=== PATIENT | male | born 1945 | race Caucasian/White ===

== ENCOUNTER 2017-11-11 17:08 | Emergency (ER) | payer MEDICARE ==
[2017-11-11] MEDS ORDERED: Ibuprofen TAB* 600 MG PO ONE (17:21)
[2017-11-11 18:24] VITALS: BP 0/0
[2017-11-11] MEDS ORDERED: Oseltamivir CAP* 75 MG CAP PO ONE (18:38)
--- NOTE | 2017-11-11 18:42 | UC ---
FLU HPI - HPI Summary HPI Summary: 3 DAYS OF FEVER, SWEATS, BODY ACHES, SUBRAMANIAN, COUGH, CONGESTION. FEELS SOB WITH CP AND DIZZINESS. UTD FLU SHOT. - History of Current Complaint Chief Complaint: UCRespiratory Stated Complaint: URI Time Seen by Provider: 11/11/17 17:49 Hx Obtained From: Patient, Family/Acupuncturist - Onset/Duration: Gradual Onset, Lasting Days, Still Present Severity Currently: Moderate Severity Initially: Moderate Pain Intensity: 5 Pain Scale Used: 0-10 Numeric Associated Signs & Symptoms: Positive: Fever, Myalgia, Cough, Nasal Congestion, Headache, Vomiting - Allergy/Home Medications Allergies/Adverse Reactions: Allergies Allergy/AdvReac Type Severity Reaction Status Date / Time No Known Allergies Allergy Verified 12/18/13 08:52 Home Medications: Home Medications Clopidogrel Bisulfate [Plavix] 11/11/17 [History] Losartan Potassium [Cozaar] 11/11/17 [History] Metoprolol Plata/Hydrochlorothiaz [Metoprolol ER-Hctz 25-12.5 mg] 11/11/17 [ History] Pravastatin Sodium [Pravachol] 11/11/17 [History] PMH/Surg Hx/FS Hx/Imm Hx Endocrine History: Dyslipidemia Cardiovascular History: Cardiac Disease, Hypertension Respiratory History: Asthma - Surgical History Surgical History: Yes Surgery Procedure, Year, and Place: Kidney stone removal x2. appendectomy. tonsillectomy with regrowth - Family History Known Family History: Positive: Hypertension - Social History Alcohol Use: None Substance Use Type: None Smoking Status (MU): Never Smoked Tobacco Have You Smoked in the Last Year: No - Immunization History Most Recent Influenza Vaccination: 07/2013 Review of Systems Constitutional: Fever, Chills, Fatigue ENT: Nasal Discharge Respiratory: Shortness Of Breath, Cough Cardiovascular: Chest Pain Gastrointestinal: Vomiting, Nausea Musculoskeletal: Myalgia Neurological: Headache All Other Systems Reviewed And Are Negative: Yes Physical Exam Triage Information Reviewed: Yes Appearance: No Pain Distress, Well-Nourished, Ill-Appearing - MODERATELY ILL, DIAPHORETIC Vital Signs: Initial Vital Signs Temp 104.0 F 11/11/17 17:17 Pulse 127 11/11/17 17:17 Resp 18 11/11/17 17:17 BP 123/84 11/11/17 17:17 Pulse Ox 94 11/11/17 17:17 Vital Signs Reviewed: Yes Eyes: Positive: Conjunctiva Clear ENT: Positive: Hearing grossly normal Neck: Positive: Supple Respiratory Exam: Normal Cardiovascular: Positive: Tachycardia Abdomen Description: Positive: Soft Musculoskeletal: Positive: No Edema Neurological: Positive: Alert Psychological: Positive: Normal Response To Family, Age Appropriate Behavior Skin: Negative: rashes Diagnostics - Laboratory Diagnostic Studies Completed/Ordered: POSITIVE INFLUENZA A - EKG Cardiac Rate: NL - 115 BPM, Tachycardia - 115 BPM Cardiac Rhythm: Sinus: Normal Ectopy: None ST Segment: Normal Flu Course/Dx - Course Course Of Treatment: OXYGEN 2L BY NC APPLIED. IBUPROFEN 600MG AND TAMIFLU 75MG PO GIVEN. PIV INSERTED. TO [facility] [place] [facility] [place] - Differential Dx/Diagnosis Provider Diagnoses: 1. INFLUENZA A. 2. SOB, DIZZY, LOW OXYGEN - Physician Notifications Discussed Patient Care With: Irlanda Gordon - TO [facility] [place] [facility] [place] Time Discussed With Above Provider: 18:39 Instructed by Provider To: Will See In ED Discharge - Discharge Plan Condition: Stable Disposition: TRANS HIGHER LVL OF CARE FAC Referrals: Jeremiah Harris MD [Primary Care Provider] -
== END 2017-11-11 19:00 | disposition short-term general hospital (02) ==
LOC: UCEAST 17:08
DX: J11.1 Influenza due to unidentified influenza virus with other respiratory manifestations (principal); R06.02 Shortness of breath; R42 Dizziness and giddiness; R09.02 Hypoxemia; R00.0 Tachycardia, unspecified; R07.89 Other chest pain; E78.5 Hyperlipidemia, unspecified; I11.9 Hypertensive heart disease without heart failure; J45.909 Unspecified asthma, uncomplicated; Z87.442 Personal history of urinary calculi
CPT/HCPCS: 87502; 93005; 99213; A9270-GY; G0463

== ENCOUNTER 2017-11-11 19:16 | Emergency (ER) | payer MEDICARE ==
[2017-11-11 20:37] VITALS: BP 119/73
--- NOTE | 2017-11-12 06:18 | ED ---
Sharyn Guillermo Nilda, scribed for Yefri Serrano MD on 11/11/17 at 2020 . Influenza-Like Illness - HPI Summary HPI Summary: This patient is a 71 year old M BIBA from [facility] to [facility] accompanied by with a chief complaint of constant flu-like symptoms for the past 3 days. The patient rates the pain 3/10 in severity. 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 Patient reports fever, body aches, cough, SOB, wheezing, and CP secondary to cough (resolved). Patient denies sore throat. Patient states he went to [facility] and was diagnosed with influenza A but was transferred to [facility] due to CP and cardiac history (CABG and CAD). Medications include albuterol, Flonase, Plavix, and Metoprolol. - History of Current Complaint Chief Complaint: EDFluSymptoms Time Seen by Provider: 11/11/17 20:05 Hx Obtained From: Patient Onset/Duration: Sudden Onset, Lasting Days, Still Present Associated Signs & Symptoms: Fever, Myalgia, Cough Related Hx: Possible Flu/Infectious Exposure - Allergy/Home Medications Allergies/Adverse Reactions: Allergies Allergy/AdvReac Type Severity Reaction Status Date / Time No Known Allergies Allergy Verified 12/18/13 08:52 PMH/Surg Hx/FS Hx/Imm Hx Cardiovascular History: Reports: Hx Coronary Artery Disease, Hx Hypercholesterolemia, Hx Hypertension Respiratory History: Reports: Hx Asthma - Surgical History Surgery Procedure, Year, and Place: Quadruple Bypass, CABG, Heart Cath. Kidney stone removal x2. appendectomy. tonsillectomy with regrowth Infectious Disease History: No Infectious Disease History: Denies: Traveled Outside the [place] in Last 30 Days - Family History Known Family History: Positive: Hypertension - Social History Alcohol Use: None Substance Use Type: Reports: None Smoking Status (MU): Never Smoked Tobacco Have You Smoked in the Last Year: No Review of Systems Positive: Fever Positive: Chest Pain - secondary to cough Positive: Shortness Of Breath, Cough, Other - wheezing Positive: Myalgia All Other Systems Reviewed And Are Negative: Yes Physical Exam - Summary Physical Exam Summary: Appearance: Well appearing, no pain distress Skin: warm, dry, reflects adequate perfusion, sternotomy scar Head/face: normal Eyes: EOMI, ROSALIND ENT: clear nasal discharge Neck: supple, non-tender Respiratory: CTA, breath sounds present, no wheezing Cardiovascular: RRR, pulses symmetrical Abdomen: non-tender, soft Bowel: present Musculoskeletal: normal, strength/ROM intact Neuro: normal, sensory motor intact, A&Ox3 Triage Information Reviewed: Yes Vital Signs On Initial Exam: Initial Vitals Temp Pulse Resp BP Pulse Ox 97.2 F 88 20 115/77 97 11/11/17 19:38 11/11/17 19:38 11/11/17 19:38 11/11/17 19:38 11/11/17 19:38 Vital Signs Reviewed: Yes Diagnostics - Vital Signs Vital Signs Temp Pulse Resp BP Pulse Ox 11/11/17 19:38 97.2 F 88 20 115/77 97 - Laboratory Lab Statement: Any lab studies that have been ordered have been reviewed, and results considered in the medical decision making process. Re-Evaluation - Re-Evaluation First Eval Re-Evaluation Time: 20:20 Comment: Patient was offered IV fluids, Patient states he doesnt need IV and would like to be D/C home where he will rehydrate. Flu Symptom Course/Dx - Course Assessment/Plan: This patient is a 71 year old MF BIBA from [facility] to [facility] accompanied by with a chief complaint of flu-like symptoms for the past 3 days. The patient rates the pain 3/10 in severity. 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 Patient reports fever, body aches, cough, SOB, wheezing, and CP secondary to cough (resolved). Patient denies sore throat. Patient states he went to [facility] and was diagnosed with influenza A. Medications include albuterol, Flonase, Plavix, and Metoprolol. Patient was offered IV fluids. Patient states he doesnt need IV and would like to be D/C home where he will rehydrate. - Diagnoses Provider Diagnoses: Influenza A Discharge - Discharge Plan Condition: Good Disposition: HOME Patient Education Materials: Influenza (ED) Referrals: Jeremiah Harris MD [Primary Care Provider] - Additional Instructions: Drink plenty of fluids. Use tylenol and ibuprofen or naproxen (Aleve) to control body aches and fever. Your inhaler may help cough. Tamiflu is not indicated. Vitamin C. Gatorade G2 for hydration. Guaifenisen DM or equivalent cough medication. Return with difficulty breathing, worse, new symptoms or other concerns. The documentation as recorded by the Sharyn chua Nilda accurately reflects the service I personally performed and the decisions made by , Yefri Serrano MD.
== END 2017-11-11 20:36 | disposition home or self-care (01) ==
LOC: ED 19:16
DX: J10.1 Influenza due to other identified influenza virus with other respiratory manifestations (principal); Z79.02 Long term (current) use of antithrombotics/antiplatelets; I25.10 Atherosclerotic heart disease of native coronary artery without angina pectoris; I10 Essential (primary) hypertension; E78.00 Pure hypercholesterolemia, unspecified; J45.909 Unspecified asthma, uncomplicated
CPT/HCPCS: 99282